=== PATIENT | female | born 1970 | race Caucasian/White ===

== ENCOUNTER 2022-07-05 14:32 | Outpatient (CLI) | payer MEDICAID, SELFPAY ==
[2022-07-05 16:52] LABS: Albumin* 4.3 g/dL (3.3-5.0); Chloride* 104 mmol/L (96-114); Potassium* 3.7 mmol/L (3.6-5.1); Sodium* 139 mmol/L (135-149)
[2022-07-05 16:54] LABS: Cholesterol* 200 mg/dL (90-199); Creatinine* 0.7 mg/dL (0.5-1.5); Estimated Glomerular Filt Rate 103 ml/min
[2022-07-05 16:55] LABS: Alanine Aminotransferase* 18 U/L (4-35); Alkaline Phosphatase* 78 U/L (40-150); Aspartate Amino Transferase* 24 U/L (12-35); Bilirubin Total* 0.4 mg/dL (0.1-1.5); Blood Urea Nitrogen* 12 mg/dL (7-30); Calcium* 9.1 mg/dL (8.4-10.6); Carbon Dioxide* 27 mmol/L (20-32); Glucose* 88 mg/dL (60-115); Total Protein* 7.6 g/dL (6.0-8.3); Triglycerides* 127 mg/dL (40-149)
[2022-07-05 16:56] LABS: HDL Cholesterol* 58 mg/dL (>=50); LDL Cholesterol Calculated 117 mg/dL (<100)
== END 2022-07-05 14:33 | disposition home or self-care (01) ==
PROVIDERS: PCP Family Medicine; Visit Provider Family Medicine
DX: Z01.419 Encounter for gynecological examination (general) (routine) without abnormal findings (principal); I10 Essential (primary) hypertension; E78.5 Hyperlipidemia, unspecified
CPT/HCPCS: 80053; 80061

== ENCOUNTER 2023-09-20 14:05 | Outpatient (CLI) | payer MEDICAID, SELFPAY | END 2023-09-20 14:06 | disposition home or self-care (01) | PROVIDERS: PCP Family Medicine; Visit Provider Family Medicine | DX: E78.2 Mixed hyperlipidemia (principal); I10 Essential (primary) hypertension | CPT/HCPCS: 80048; 80061 ==

== ENCOUNTER 2025-01-07 09:08 | Outpatient (CLI) | payer MEDICAID, SELFPAY | END 2025-01-07 09:09 | disposition home or self-care (01) | LOC: NFLDREF 01-11 15:20 | PROVIDERS: PCP Family Medicine; Referring Provider Family Medicine; Visit Provider Family Medicine | DX: I10 Essential (primary) hypertension (principal); E78.5 Hyperlipidemia, unspecified | CPT/HCPCS: 80053; 80061 ==